=== PATIENT | female | born 1995 | race Caucasian/White ===

== ENCOUNTER 2021-01-14 13:26 | Emergency (ER) | payer SELFPAY ==
[2021-01-14 15:02] LABS: Bilirubin Neg (Negative); Blood, Urine 10 (Negative); Clarity Slightly Cloudy (Clear); Glucose, Urine (Dipstick) Normal (Negative); Ketone, Urine Negative (Negative); Leukocyte 100 (Negative); Nitrite Negative (Negative); Protein, Urine (Dipstick) 30 mg/dl (Neg-Trace); Urobilinogen Normal mg/dL (Less than 2)
[2021-01-14 15:22] LABS: RBC/HPF 0-3 HPF (0-3)
[2021-01-14 15:23] LABS: Bacteria/HPF 2+ HPF (None Seen)
[2021-01-14 15:56] LABS: Pregnancy Test - Urine (BHCG) Negative (Negative); Pregu Control Bar Appear? YES (CONTROL BAR)
[2021-01-14 15:57] LABS: Pregu Control Background? CLEAR/WHITE (CLR/WHITE)
== END 2021-01-14 16:40 | disposition home or self-care (01) ==
LOC: CSHERS 13:26
DX: N39.0 Urinary tract infection, site not specified (principal)
CPT/HCPCS: 81003; 81015; 81025; 87086; 99283